=== PATIENT | male | born 1975 | race Caucasian/White ===

== ENCOUNTER 2017-11-11 14:20 | Emergency (ER) | payer BC, MEDICAID, OTHER ==
[2017-11-11] MEDS ORDERED: Sodium Chloride 0.9% 10 ML Syringe FLUSH PRN (14:24)
[2017-11-11] MEDS ORDERED: Metoprolol Tartrate 5 MG/5 ML SDV IVPUSH ONE (14:24)
[2017-11-11] MEDS ORDERED: Famotidine 20 MG/2 ML SDV IVPUSH ONE (14:24)
[2017-11-11] MEDS ORDERED: Ticagrelor 90 MG Tab PO ONE ×2 (14:24→14:30)
[2017-11-11] MEDS ORDERED: Heparin Sodium 5,000 Units/ML Vial IVPUSH ONE (14:25)
[2017-11-11] MEDS ORDERED: Ondansetron 4 MG/2 ML SDV IVPUSH ONE (14:28)
[2017-11-11] MEDS ORDERED: fentaNYL 100 MCG/2 ML SDV IVPUSH ONE (14:28)
[2017-11-11] MEDS ORDERED: Heparin Sodium/D5W 25,000 UNITS/500 ML BAG IV SCH (14:30)
[2017-11-11] MEDS ORDERED: Ondansetron 4 MG/2 ML SDV ONE (14:30)
[2017-11-11] MEDS ORDERED: Nitroglycerin/D5W (0.1 MG/ML) 25 MG/250 ML Bottle ONE (14:30)
[2017-11-11] MEDS ORDERED: fentaNYL 100 MCG/2 ML SDV ONE (14:30)
[2017-11-11] MEDS ORDERED: Famotidine 20 MG/2 ML SDV ONE (14:30)
[2017-11-11] MEDS ORDERED: Heparin Sodium 5,000 Units/ML Vial ONE (14:30)
[2017-11-11] MEDS ORDERED: Metoprolol Tartrate 5 MG/5 ML SDV ONE (14:30)
[2017-11-11] MEDS ORDERED: hydrALAZINE 20 MG/ML SDV IVPUSH ONE (14:42)
[2017-11-11] MEDS ORDERED: Sodium Chloride 0.9% 1,000 ML IV SCH (14:45)
--- NOTE | 2017-11-11 14:49 | EDM.PDOC ---
ED HPI GENERAL MEDICAL PROBLEM - General Chief Complaint: Chest Pain Stated Complaint: CHEST PAIN Time Seen by Provider: 11/11/17 14:23 Source of Information: Reports: Patient, EMS, EMS Notes Reviewed (EMS note. On Site [place] Evaluator note not available), Family (), Old Records ([facility] EMR. No paper hospital chart available.) History Limitations: Reports: No Limitations - History of Present Illness INITIAL COMMENTS - FREE TEXT/NARRATIVE: The patient was brought to the emergency room via ambulance with initial EMT evaluation and subsequent initial treatment and evaluation by paramedics. the patient began experiencing 7/10 retrosternal chest pressure radiating to his left neck and left arm, including some diaphoresis, dyspnea, and paresthesias with symptoms similar to his previous NJ in 2016 as below. The patient was driving at time of the above onset of symptoms. The patient did take two coated baby aspirin at onset of the above symptoms with 2 additional uncoated baby aspirin given by the paramedics prior to arrival. Patient's chest pain did progress to 10/10 during transport with improvement to 7/10 after 3 sublingual nitroglycerin tablets were given by the paramedics in route. O2 by nonrebreather mask was applied by the prison officer with no other treatment in route. EKG taken by the paramedics indicated an anterior wall STEMI with STEMI called by the paramedics. NJ treatment team, including this physician, were present in the emergency room at time of patient's arrival. The patient did stop his Plavix on his own about 9 months ago per his 's history. No recent history of fall, injury, surgery, etc.. The patient denies heart flutter, dizziness, orthostasis, orthopnea, recent decreased exercise tolerance, or any other anginal-type symptoms. No recent history of abdominal pain, heartburn, nausea, diarrhea, melena, gross hematochezia, or any food intolerance, including fatty foods, etc.. He denies any recent UTI symptoms including gross hematuria, etc.. The patient also denies any recent fever, cough, wheezing, dyspnea, etc.. No history of recent headaches, visual changes, diplopia, change in mental status, or other change in neurological status. Onset: Today Onset Date: 11/11/17 Onset Time: 13:45 Duration: Constant Location: Reports: Neck, Chest, Upper Extremity, Left, Radiates to (As above). Denies: Head, Face, Abdomen, Back, Pelvis, Upper Extremity, Right, Lower Extremity, Left Quality: Reports: Pressure, Same as Previous Episode Severity: Severe Improves with: Reports: Medication Worsens with: Reports: None Context: Reports: Other (As above) Associated Symptoms: Reports: Chest Pain, Diaphoresis, Nausea/Vomiting, Shortness of Breath. Denies: Confusion, Cough, cough w sputum, Fever/Chills, Headaches, Loss of Appetite, Malaise, Seizure, Syncope, Weakness Treatments PUBLICATION MANAGER: Reports: Aspirin, Nitroglycerin, Oxygen. Denies: IV/IO Middle Chest Pain Score (Numeric/FACES): 7 - Related Data Allergies Allergy/AdvReac Type Severity Reaction Status Date / Time Sulfa (Sulfonamide Allergy Hives Verified 07/18/16 13:53 Antibiotics) Home Meds: Home Meds Esomeprazole [NexIUM] 20 mg PO BEDTIME 05/22/15 [History] Past Medical History HEENT History: Reports: None. Denies: Allergic Rhinitis, Hard of Hearing, Impaired Vision Cardiovascular History: Reports: Arrhythmia, CAD, Cardiomyopathy, High Cholesterol, Hypertension, NJ, PTCA, Stents, Other (See Below). Denies: Aneurysm, Blood Clots/VTE/DVT, Bypass, Heart Failure, Heart Murmur, Syncope Other Cardiovascular History: Anterior wall non-STEMI on 07/18/16 with emergent PTCA/stent as below. Ischemic cardiomyopathy at time of intraoperative echocardiogram as below. Multiformed PVCs, sinus arrhythmia, and bigeminy including at time of low level cardiac stress test on 08/25/16. Dyslipidemia. Respiratory History: Reports: COPD, Intubation, Previous, Other (See Below). Denies: Asthma, Intubation, Difficult, PE Other Respiratory History: COPD by chest x-ray with no current medical therapy Gastrointestinal History: Reports: GERD. Denies: Chronic Constipation, Chronic Diarrhea, Gastritis, GI Bleed, Hepatitis, Pancreatitis, PUD Genitourinary History: Reports: None Musculoskeletal History: Reports: Arthritis, Fracture, Osteoarthritis. Denies: Gout, RA, SLE Other Musculoskeletal History: Proximal phalangeal of fracture of digit #2 of the right hand in the 1980s. Previous right rotator cuff tear. Right distal biceps tendon rupture on 05/22/15. Neurological History: Reports: TIA, Other (See Below). Denies: Brain Injury, Concussion, Headaches, Chronic, Head Trauma, Migraines, Neuropathy, Peripheral, Vertigo Other Neuro History: TIA on 08/17/16 with some left facial weakness and paresthesias but negative CT scan of the head as below and no current deficits Psychiatric History: Reports: None. Denies: Addiction, Anxiety, Depression Endocrine/Metabolic History: Denies: Diabetes, Type I, Diabetes, Type II, Diabetes Mellitus, Type 3c, Hypothyroidism, IDDM Hematologic History: Reports: None. Denies: Anemia, B12 Deficiency, Blood Transfusion(s), Iron Deficiency Immunologic History: Reports: None Oncologic (Cancer) History: Reports: Colon Dermatologic History: Reports: None - Infectious Disease History Infectious Disease History: Reports: Chicken Pox. Denies: Shingles - Past Surgical History Cardiovascular Surgical History: Reports: Coronary Artery Stent, Percutaneous Transluminal Angioplasty, Other (See Below). Denies: Carotid Stents, Coronary Artery Bypass Other Cardiovascular Surgeries/Procedures: Emergent PTCA/drug-eluting stents 2 in the mid LAD secondary to non-STEMI on 07/18/18 Musculoskeletal Surgical History: Reports: Shoulder Surgery, Other (See Below) Other Musculoskeletal Surgeries/Procedures:: Rotator cuff repairright - Past Imaging History Past Imaging History: Reports: Angiography (07/18/16), Cardiac Echo (07/19/16 with ejection fraction of 4045 percent), CAT Scan (Negative CT of the head on ) Social & Family History - Family History Cardiac: Reports: Bypass, CAD, [place], Stent, Other (See Below) Other Cardiac Family History: Father with initial NJ at age 35 with 2 vessel CABG at that time and eventual fatal NJ at age 50. Paternal grandmother with fatal NJ in her 70s. Mother with PTCA/stents with NJ in her 50s. - Tobacco Use Smoking Status *Q: Current Every Day Smoker Tobacco Use Within Last Twelve Months: Cigarettes Years of Tobacco use: 24 Packs/Tins Daily: 0.5 Packs/Tins Daily Comment: Started smoking cigarettes at age 18 with previous average use of 1 1/22 packs per day. Additional chewing tobacco use between ages 22 and 27 of one half can per day Used Tobacco, but Quit: No Smoking Cessation Information Provided To Patient: Yes Second Hand Smoke Exposure: No Source of Second Hand Smoke Exposure: quit smoking 5 months ago Second Hand Smoke Education Provided: No - Caffeine Use Caffeine Use: Reports: Coffee, Soda - Alcohol Use Alcohol Use History: Yes Days Per Week of Alcohol Use: 0 (No previous DWIs, problems with alcohol abuse, etc.) Number of Drinks Per Day: 3 (Usually 3 beers every 3 months) Total Drinks Per Week: 0 Alcohol Use in Last Twelve Months: Yes Alcohol Use Frequency: Socially - Recreational Drug Use Recreational Drug Use: No Drug Use in Last 12 Months: Yes Recreational Drug Type: Reports: Marijuana/Hashish Recreational Drug Use Frequency: Monthly - Living Situation & Occupation Living situation: Reports: (2013), with Family Occupation: Other Social History Comment: Previously a senior designer/art director ED ROS GENERAL - Review of Systems Review Of Systems: ROS reveals no pertinent complaints other than HPI. ED EXAM, GENERAL - Physical Exam Exam: See Below Exam Limited By: No Limitations General Appearance: Alert, WD/WN, No Apparent Distress Eye Exam: Bilateral Eye: EOMI, Normal Inspection (No nystagmus), PERRL Ears: Normal External Exam, Normal Canal, Hearing Grossly Normal, Normal TMs Nose: Normal Inspection, Normal Mucosa, No Blood Throat/Mouth: Normal Lips, Normal Oropharynx, Normal Voice, No Airway Compromise. No: Normal Teeth (Multiple missing teeth with additional multiple caries including broken tooth into the gumline in the upper right premolar region with no evidence of abscess), Dysphagia, Perioral Cyanosis Head: Atraumatic, Normocephalic. No: Facial Swelling, Facial Tenderness, Sinus Tenderness Neck: Normal Inspection, Supple, Non-Tender, Full Range of Motion. No: Carotid Bruit, Lymphadenopathy (L), Lymphadenopathy (R), Thyromegaly Respiratory/Chest: No Respiratory Distress, No Accessory Muscle Use, Chest Non- Tender, Rales (Mild bilateral basilar rales). No: Rhonchi, Wheezing, Pleural Rub, Retractions Cardiovascular: Normal Peripheral Pulses, Regular Rate, Rhythm, No Edema, No Gallop, No JVD, No Murmur, No Rub. No: Gallop/S3, Gallop/S4, Friction Rub Peripheral Pulses: 2+: Radial (L), Radial (R), Dorsalis Pedis (L), Dorsalis Pedis (R) GI/Abdominal: Normal Bowel Sounds, Soft, Non-Tender, No Organomegaly, No Distention, No Abnormal Bruit, No Mass, Pelvis Stable, Guarding, Other (12 centimeter nonincarcerated umbilical hernia) (Male) Exam: Deferred Rectal (Males) Exam: Deferred Back Exam: Normal Inspection, Full Range of Motion. No: CVA Tenderness (L), CVA Tenderness (R), Muscle Spasm Extremities: Normal Inspection, Normal Range of Motion, Non-Tender, No Pedal Edema, Normal Capillary Refill. No: Howard's Sign Neurological: Alert, Oriented, CN II-XII Intact, Normal Cognition, Normal Gait, Normal Reflexes (Negative Babinski's), No Motor/Sensory Deficits Psychiatric: Normal Affect, Normal Mood Skin Exam: Warm, Dry, Intact, Normal Color, No Rash. No: Diaphoretic, Wound/ Incision Lymphatic: No Adenopathy EKG INTERPRETATION EKG Date: 11/11/17 Time: 14:21 Rhythm: NSR Rate (Beats/Min): 61 [place]: Normal (Neutral) P-Wave: Enlarged (Diffuse biphasic P wavesmild. Poor R-wave progression in the anterior leads) QRS: Normal (QRS interval 0.08 seconds) ST-T: Other (Peaked T waves with evidence of [address] elevations in leads V1 and V2 with additional nonspecific downsloping ST changes in leads 3 and aVF.) QT: Normal OK/PQ Interval: 0.16 seconds Comparison: Change From Previous EKG (At time of low level cardiac stress test on 08/25/16 with T-wave inversions in leads V1, V2, and aVL at that time. Also PVCs during that evaluation) EKG Interpretation Comments: 1. Probable anterior wall STEMI 2. Probable inferolateral wall cardiac ischemia 3. History of PVCs Course - Vital Signs Last Recorded V/S: See Emed Flow Sheet - Orders/Labs/Meds Orders: Active Orders 24 hr Category Date Time Status Cardiac Monitoring [RC] . DIRECTED Care 11/11/17 14:24 Active EKG Documentation Completion [RC] ASDIRECTED Care 11/11/17 14:24 Active Oxygen Therapy, ED [RC] CONTINUOUS Care 11/11/17 14:24 Active Peripheral IV Care [RC] . DIRECTED Care 11/11/17 14:24 Active Pulse Oximetry [RC] CONTINUOUS Care 11/11/17 14:24 Active Up With Assistance [RC] PFP Care 11/11/17 14:24 Active Vital Signs [RC] PFP Care 11/11/17 14:24 Active Nothing per Oral Now Diet [DIET] Diet 11/11/17 Breakfast Active Chest 1V Frontal [CR] Stat Exams 11/11/17 14:24 Taken Heparin Sodium/D5W [Heparin 25,000 Units in D5W 500 ML] Med 11/11/17 14:30 Active 25,000 units in 500 ml IV TITRATE Nitroglycerin/D5W [Nitroglycerin 25 MG/D5W 250 ML] Med 11/11/17 15:00 Active 25 mg in 250 ml IV TITRATE Sodium Chloride 0.9% [Normal Saline] 1,000 ml Med 11/11/17 14:45 Ordered IV ASDIRECTED Sodium Chloride 0.9% [Saline Flush] Med 11/11/17 14:24 Active 10 ml FLUSH ASDIRECTED PRN Obtain Past Medical Record [OM.PC] Urgent Oth 11/11/17 14:24 Active Peripheral IV Insertion Adult [OM.PC] Stat Oth 11/11/17 14:24 Ordered Resuscitation Status Stat Resus Stat 11/11/17 14:24 Ordered Medication Orders Heparin Sodium/Dextrose (Heparin 25,000 Units In D5w 500 Ml) 25,000 units in 500 mls @ 21.772 mls/hr IV TITRATE SOLEDAD; Protocol Sodium Chloride (Normal Saline) 1,000 mls @ 30 mls/hr IV ASDIRECTED SOLEDAD Nitroglycerin/Dextrose (Nitroglycerin 25 Mg/D5w 250 Ml) 25 mg in 250 mls @ 6 mls/hr IV TITRATE SOLEDAD Sodium Chloride (Saline Flush) 10 ml FLUSH ASDIRECTED PRN PRN Reason: Keep Vein Open Labs: Laboratory Tests 11/11/17 11/11/17 11/11/17 Range/Units 14:30 14:30 14:30 WBC 13.2 H (4.0-10.2) K/uL RBC 5.31 (4.33-5.41) M/uL Hgb 16.5 (13.1-16.8) g/dL Hct 46.4 (39.0-49.0) % MCV 87.4 (84.0-98.0) fL MCH 31.1 (28.2-33.3) pg MCHC 35.6 (31.7-36.0) g/dL RDW 13.4 (11.2-14.1) % Plt Count 255 (150-350) K/uL Neut % (Auto) 78.0 (45.0-80.0) % Lymph % (Auto) 15.8 (10.0-50.0) % [place] % (Auto) 4.8 (2.0-14.0) % Eos % (Auto) 1.0 (0.0-5.0) % Baso % (Auto) 0.4 (0.0-2.0) % Neut # (Auto) 10.33 H (1.40-7.00) K/uL Lymph # (Auto) 2.09 (0.50-3.50) K/uL [place] # (Auto) 0.64 (0.00-1.00) K/uL Eos # (Auto) 0.13 (0.00-0.50) K/uL Baso # (Auto) 0.05 (0.00-0.20) K/uL PT 11.4 (9.8-11.7) SEC INR 1.1 APTT 24.3 (22.1-29.8) SEC D-Dimer, Quantitative < 100 (0-400) ng/mL Sodium (136-145) mmol/L Potassium (3.5-5.1) mmol/L Chloride (98-107) mmol/L Carbon Dioxide (21.0-32.0) mmol/L BUN (7-18) mg/dL Creatinine (0.51-1.17) mg/dL Est Cr Clr Drug Dosing Estimated GFR (MDRD) mL/min Glucose (74-106) mg/dL Lactic Acid (0.4-2.0) mmol/L Uric Acid (2.6-7.2) mg/dL Calcium (8.5-10.1) mg/dL Magnesium (1.8-2.4) mg/dL Total Bilirubin (0.2-1.0) mg/dL AST (15-37) U/L ALT (12-78) U/L Alkaline Phosphatase (46-116) IU/L Creatine Kinase (26-308) U/L Creatine Kinase Index (0.0-2.5) % CK-MB (CK-2) (0.00-3.60) ng/mL Troponin I (0.000-0.056) ng/mL NT-Pro-B Natriuret Pep (0-125) pg/mL Total Protein (6.4-8.2) g/dL Albumin (3.4-5.0) g/dL TSH, Ultra Sensitive (0.358-3.740) mIU/mL 11/11/17 11/11/17 Range/Units 14:30 14:30 WBC (4.0-10.2) K/uL RBC (4.33-5.41) M/uL Hgb (13.1-16.8) g/dL Hct (39.0-49.0) % MCV (84.0-98.0) fL MCH (28.2-33.3) pg MCHC (31.7-36.0) g/dL RDW (11.2-14.1) % Plt Count (150-350) K/uL Neut % (Auto) (45.0-80.0) % Lymph % (Auto) (10.0-50.0) % [place] % (Auto) (2.0-14.0) % Eos % (Auto) (0.0-5.0) % Baso % (Auto) (0.0-2.0) % Neut # (Auto) (1.40-7.00) K/uL Lymph # (Auto) (0.50-3.50) K/uL [place] # (Auto) (0.00-1.00) K/uL Eos # (Auto) (0.00-0.50) K/uL Baso # (Auto) (0.00-0.20) K/uL PT (9.8-11.7) SEC INR APTT (22.1-29.8) SEC D-Dimer, Quantitative (0-400) ng/mL Sodium 139 (136-145) mmol/L Potassium 3.9 (3.5-5.1) mmol/L Chloride 103 (98-107) mmol/L Carbon Dioxide 22.9 (21.0-32.0) mmol/L BUN 18 (7-18) mg/dL Creatinine 1.19 H (0.51-1.17) mg/dL Est Cr Clr Drug Dosing TNP Estimated GFR (MDRD) > 60 mL/min Glucose 118 H (74-106) mg/dL Lactic Acid 2.1 H (0.4-2.0) mmol/L Uric Acid 8.1 H (2.6-7.2) mg/dL Calcium 9.4 (8.5-10.1) mg/dL Magnesium 2.0 (1.8-2.4) mg/dL Total Bilirubin 0.9 (0.2-1.0) mg/dL AST 21 (15-37) U/L ALT 18 (12-78) U/L Alkaline Phosphatase 113 (46-116) IU/L Creatine Kinase 209 (26-308) U/L Creatine Kinase Index 0.7 (0.0-2.5) % CK-MB (CK-2) 1.50 (0.00-3.60) ng/mL Troponin I 0.009 (0.000-0.056) ng/mL NT-Pro-B Natriuret Pep 43 (0-125) pg/mL Total Protein 8.5 H (6.4-8.2) g/dL Albumin 4.3 (3.4-5.0) g/dL TSH, Ultra Sensitive 1.399 (0.358-3.740) mIU/mL Meds: Medications Generic Name Dose Route Start Last Admin Trade Name Freq PRN Reason Stop Dose Admin Heparin Sodium/Dextrose 25,000 units in 500 mls @ 21.772 mls/hr 11/11/17 14: 30 Heparin 25,000 Units In D5w 500 Ml IV TITRATE SOLEDAD Protocol 12 UNITS/KG/HR Sodium Chloride 1,000 mls @ 30 mls/hr 11/11/17 14:45 Normal Saline IV ASDIRECTED SOLEDAD Nitroglycerin/Dextrose 25 mg in 250 mls @ 6 mls/hr 11/11/17 15:00 Nitroglycerin 25 Mg/D5w 250 Ml IV TITRATE SOLEDAD 10 MCG/MIN Sodium Chloride 10 ml 11/11/17 14:24 Saline Flush FLUSH ASDIRECTED PRN Keep Vein Open Discontinued Medications Generic Name Dose Route Start Last Admin Trade Name Freq PRN Reason Stop Dose Admin Aspirin 162 mg 11/11/17 14:50 Aspirin CHEW 11/11/17 14:51 ONETIME ONE Famotidine 40 mg 11/11/17 14:24 Pepcid IVPUSH 11/11/17 14:25 ONETIME ONE Fentanyl 100 mcg 11/11/17 14:28 Sublimaze IVPUSH 11/11/17 14:29 ONETIME ONE Heparin Sodium (Porcine) 4,000 units 11/11/17 14:25 Heparin Sodium IVPUSH 11/11/17 14:26 ONETIME ONE Hydralazine HCl 10 mg 11/11/17 14:42 Apresoline IVPUSH 11/11/17 14:43 ONETIME ONE Metoprolol Tartrate 2.5 mg 11/11/17 14:24 Lopressor IVPUSH 11/11/17 14:25 ONETIME ONE Ondansetron HCl 4 mg 11/11/17 14:28 Zofran IVPUSH 11/11/17 14:29 ONETIME ONE Ticagrelor 180 mg 11/11/17 14:24 Brilinta PO 11/11/17 14:25 ONETIME ONE - Radiology Interpretation Free Text/Narrative:: quality assurance monitor body showed normal sinus rhythm with heart rate in the 60s with no ectopy or arrhythmia Chest x-ray, portable, showed mild cardiomegaly and centralized CHF with moderate COPD changes but no pulmonary infiltrates, pneumothorax, etc. Departure - Departure Time of Disposition: 14:55 Disposition: DC/Tfer to Acute Hospital 02 Reason for Transfer *Q: Primary PCI Indicated Condition: Fair Clinical Impression: Lactic acid increased, Hyperproteinemia, Tobacco abuse counseling, Dyslipidemia , Renal insufficiency, Caries, Peptic reflux disease STEMI (ST elevation myocardial infarction) Qualifiers: Involved coronary artery: LAD coronary artery Qualified Code(s): I21.02 - ST elevation (STEMI) myocardial infarction involving left anterior descending coronary artery CHF (congestive heart failure) Qualifiers: Heart failure type: unspecified Heart failure chronicity: acute on chronic Qualified Code(s): I50.9 - Heart failure, unspecified Hypertension Qualifiers: Hypertension type: essential hypertension Qualified Code(s): I10 - Essential ( primary) hypertension COPD (chronic obstructive pulmonary disease) Qualifiers: COPD type: emphysema Emphysema type: panlobular Qualified Code(s): J43.1 - Panlobular emphysema Coronary artery disease Qualifiers: Coronary Disease-Associated Artery/Lesion type: [place] artery [place] vs. transplanted heart: [place] heart Associated angina: with unstable angina Qualified Code(s): I25.110 - Atherosclerotic heart disease of [place] coronary artery with unstable angina pectoris Referrals: PCP,Unknown [Primary Care Provider] - Forms: ED Department Discharge, Interfacility Transfer EMTALA - Problem List & Annotations (1) STEMI (ST elevation myocardial infarction) SNOMED Code(s): 275075581 Code(s): I21.3 - ST ELEVATION (STEMI) MYOCARDIAL INFARCTION OF [facility] SITE Status: Acute Priority: High Current Visit: Yes Onset Date: 11/11/17 Annotation/Comment:: Suspected repeat anterior wall [place], including probable STEMI. EKG was immediately faxed to [facility] for cardiology review. Initial telephone consultation with [facility] at 14:25 hours with subsequent repeat telephone consultation at 14:[address] Tolbert, technology recruiter at [facility], who does agree to accept the patient for immediate emergent heart catheterization and possible repeat PTCA/ stent. He is in agreement with our treatment plan with additional 2 uncoated baby aspirin, Brilinta, and IV heparin therapy using STEMI protocol initiated prior to transfer. Patient did receive 100 g of fentanyl with only some improvement of his symptoms. IV nitroglycerin infusion was initiated immediately prior to patient transfer to their facility. Ambulance transfer with cco accompaniment. No further treatment recommendations given, including no thrombolytics. Patient's blood pressures were somewhat elevated with low-dose hydralazine initially recommended, however this was held prior to transfer secondary to patient's improved blood pressures. Paramedics were given hydralazine for possible treatment in route with treatment guidelines provided prior to transfer. Patient and his were extensively counseled prior to transfer with vital signs stable at that time. Note some mild leukocytosis likely secondary to stress reaction with patient afebrile and no evidence of infection. Subsequent telephone consultation at 15:45 hours with the cco. Vital signs are stable, however patient continues to have chest pain. His nitroglycerin infusion will be increased with patient also to be given 4 mg of morphine IV, which should also be beneficial for his borderline CHF as below. Qualifiers: Involved coronary artery: LAD coronary artery Qualified Code(s): I21.02 - ST elevation (STEMI) myocardial infarction involving left anterior descending coronary artery (2) Coronary artery disease SNOMED Code(s): 10129201 Code(s): I25.10 - ATHSCL HEART DISEASE OF [place] CORONARY ARTERY W/O ANG PCTRS Status: Acute Current Visit: Yes Onset Date: 07/18/16 Annotation/ Comment:: As above Qualifiers: Coronary Disease-Associated Artery/Lesion type: [place] artery [place] vs. transplanted heart: [place] heart Associated angina: with unstable angina Qualified Code(s): I25.110 - Atherosclerotic heart disease of [place] coronary artery with unstable angina pectoris (3) CHF (congestive heart failure) SNOMED Code(s): 88412044 Code(s): I50.9 - HEART FAILURE, UNSPECIFIED Status: Acute Priority: High Current Visit: Yes Annotation/Comment:: History of post [place] cardiomyopathy by echocardiogram in June 2016 as above. Evidence of some borderline mild CHF by today's chest x-ray and clinical exam, although BNP is normal today. Repeat echocardiogram, etc. per cardiology recommendations and per the patient' s clinical course Qualifiers: Heart failure type: unspecified Heart failure chronicity: acute on chronic Qualified Code(s): I50.9 - Heart failure, unspecified (4) Hypertension SNOMED Code(s): 65213979 Code(s): I10 - ESSENTIAL (PRIMARY) HYPERTENSION Status: Chronic Priority : Medium Current Visit: Yes Annotation/Comment:: Continue to observe his blood pressures closely by his provider with elevated blood pressures during emergency room care as above Qualifiers: Hypertension type: essential hypertension Qualified Code(s): I10 - Essential (primary) hypertension (5) COPD (chronic obstructive pulmonary disease) SNOMED Code(s): 77217749 Code(s): J44.9 - CHRONIC OBSTRUCTIVE PULMONARY DISEASE, UNSPECIFIED Status : Chronic Priority: Medium Current Visit: Yes Annotation/Comment:: COPD by chest x-ray, similar to previous chest x-ray in June 2016. Note history of tobacco abuse and previous secondhand tobacco smoke exposure. No current fever, bronchitic type symptoms, etc. Consider PFTs once his clinical condition has improved. Smoking cessation JAMAR as below. Qualifiers: COPD type: emphysema Emphysema type: panlobular Qualified Code(s): J43.1 - Panlobular emphysema (6) Caries SNOMED Code(s): 94795586 Code(s): K02.9 - DENTAL CARIES, UNSPECIFIED Status: Chronic Priority: Medium Current Visit: Yes Annotation/Comment:: Persistent multiple caries. Follow-up with dentist JAMAR after his cardiac condition has stabilized once again encouraged (7) Dyslipidemia SNOMED Code(s): 235553847 Code(s): E78.5 - HYPERLIPIDEMIA, UNSPECIFIED Status: Chronic Priority: High Current Visit: Yes Annotation/Comment:: Not currently under therapy. Medication noncompliance?. Advise immediate initiation of statin therapy especially in light of his previous PTCA/stent and probable recurrent MIs. (8) Hyperproteinemia SNOMED Code(s): 60248975 Code(s): E88.09 - OTH DISORDERS OF PLASMA-PROTEIN METABOLISM, NEC Status: Acute Priority: Medium Current Visit: Yes Onset Date: 11/11/17 Annotation/Comment:: Observe for now (9) Lactic acid increased SNOMED Code(s): 57748689 Code(s): E87.2 - ACIDOSIS Status: Acute Priority: High Current Visit: Yes Onset Date: 11/11/17 Annotation/Comment:: Observe for now. Likely stress reaction with no fever, evidence of sepsis, etc.. Consider repeat lactic acid level in 3 hours (10) Peptic reflux disease SNOMED Code(s): 718941545 Code(s): K21.9 - GASTRO-ESOPHAGEAL REFLUX DISEASE WITHOUT ESOPHAGITIS Status: Chronic Priority: Medium Current Visit: Yes Annotation/Comment:: Stable by history with current medical therapy. Additional high-dose IV Pepcid given in the emergency room as GI prophylaxis no recent history of gross hematochezia, etc. Consider change of his current Nexium to Pepcid therapy secondary to his previous PTCA/stents. (11) Renal insufficiency SNOMED Code(s): 042995898, 365794603 Code(s): N28.9 - DISORDER OF KIDNEY AND URETER, UNSPECIFIED Status: Acute Priority: Medium Current Visit: Yes Onset Date: 11/11/17 Annotation/ Comment:: Borderline mild renal insufficiency. Observe closely especially in light of planned immediate heart catheterization. (12) Tobacco abuse counseling SNOMED Code(s): 800331375, 236423819, 143255082 Code(s): Z71.6 - TOBACCO ABUSE COUNSELING Status: Chronic Priority: Medium Current Visit: Yes Annotation/Comment:: Tobacco cessation once again strongly encouraged with information provided to his at discharge. His was congratulated about stopping smoking 5 months ago. - Problem List Review Problem List Initiated/Reviewed/Updated: Yes - My Orders Last 24 Hours: My Active Orders 11/11/17 14:24 Cardiac Monitoring [RC] . DIRECTED EKG Documentation Completion [RC] ASDIRECTED Oxygen Therapy, ED [RC] CONTINUOUS Peripheral IV Care [RC] . DIRECTED Pulse Oximetry [RC] CONTINUOUS Up With Assistance [RC] PFP Vital Signs [RC] PFP Chest 1V Frontal [CR] Stat Sodium Chloride 0.9% [Saline Flush] 10 ml FLUSH ASDIRECTED PRN Obtain Past Medical Record [OM.PC] Urgent Peripheral IV Insertion Adult [OM.PC] Stat Resuscitation Status Stat 11/11/17 14:30 Heparin Sodium/D5W [Heparin 25,000 Units in D5W 500 ML] 25,000 units in 500 ml IV TITRATE 11/11/17 14:45 Sodium Chloride 0.9% [Normal Saline] 1,000 ml IV ASDIRECTED 11/11/17 15:00 Nitroglycerin/D5W [Nitroglycerin 25 MG/D5W 250 ML] 25 mg in 250 ml IV TITRATE 11/11/17 Breakfast Nothing per Oral Now Diet [DIET] - Assessment/Plan Last 24 Hours: My Active Orders 11/11/17 14:24 Cardiac Monitoring [RC] . DIRECTED EKG Documentation Completion [RC] ASDIRECTED Oxygen Therapy, ED [RC] CONTINUOUS Peripheral IV Care [RC] . DIRECTED Pulse Oximetry [RC] CONTINUOUS Up With Assistance [RC] PFP Vital Signs [RC] PFP Chest 1V Frontal [CR] Stat Sodium Chloride 0.9% [Saline Flush] 10 ml FLUSH ASDIRECTED PRN Obtain Past Medical Record [OM.PC] Urgent Peripheral IV Insertion Adult [OM.PC] Stat Resuscitation Status Stat 11/11/17 14:30 Heparin Sodium/D5W [Heparin 25,000 Units in D5W 500 ML] 25,000 units in 500 ml IV TITRATE 11/11/17 14:45 Sodium Chloride 0.9% [Normal Saline] 1,000 ml IV ASDIRECTED 11/11/17 15:00 Nitroglycerin/D5W [Nitroglycerin 25 MG/D5W 250 ML] 25 mg in 250 ml IV TITRATE 11/11/17 Breakfast Nothing per Oral Now Diet [DIET] Assessment:: As above Plan: As above. Extensive precautions were given to the patient, who is in agreement with the treatment plan. Ambulance transfer with cco accompaniment.
[2017-11-11] MEDS ORDERED: Aspirin 81 MG Tab.Chew CHEW ONE (14:50)
[2017-11-11] MEDS ORDERED: Nitroglycerin/D5W 25 MG/250 ML BOTTLE IV SCH (15:00)
[2017-11-11 15:01] LABS: CHLORIDE,CL 103 mmol/L (98-107); SODIUM,NA 139 mmol/L (136-145)
== END 2017-11-11 14:54 ==
LOC: LL.ED 14:20
DX: I21.02 ST elevation (STEMI) myocardial infarction involving left anterior descending coronary artery (principal); I11.0 Hypertensive heart disease with heart failure; I50.9 Heart failure, unspecified; J43.1 Panlobular emphysema; I25.110 Atherosclerotic heart disease of native coronary artery with unstable angina pectoris; E78.5 Hyperlipidemia, unspecified; N28.9 Disorder of kidney and ureter, unspecified; I25.2 Old myocardial infarction; F17.210 Nicotine dependence, cigarettes, uncomplicated; E88.09 Other disorders of plasma-protein metabolism, not elsewhere classified; K21.9 Gastro-esophageal reflux disease without esophagitis; K02.9 Dental caries, unspecified; R79.89 Other specified abnormal findings of blood chemistry; Z88.2 Allergy status to sulfonamides; Z71.6 Tobacco abuse counseling
CPT/HCPCS: 36415; 71045; 80053; 82550; 82553; 83605; 83735; 83880; 84443; 84484; 84550; 85025; 85379; 85610; 85730; 93005; 96374; 96375; 99291; A9270; J1644; J2405; J3010; 93010; 99285; J3490; S0028